=== PATIENT | male | born 1985 | race African-American/Black ===

== ENCOUNTER 2025-05-01 11:10 | Emergency (ER) | payer OTHER, SELFPAY ==
--- NOTE | ~2025-05-01 | XR_ITS ---
EXAMINATION: XR CHEST CLINICAL INFORMATION: cp COMPARISON: None available. TECHNIQUE: PA and lateral views. FINDINGS: No consolidation, pleural effusion or pneumothorax. Cardiomediastinal silhouette size is normal. Multilevel thoracic spondylosis. XR/XR chest 2V IMPRESSION: No acute airspace disease. Electronically signed by: Rao Barrow MD 05/01/2025 11:46 AM [facility]
--- NOTE | ~2025-05-01 | CT_ITS ---
CLINICAL HISTORY: right chest pain, hx PE Exam: Contrast-enhanced chest CT pulmonary angiogram with multiplanar reformats and MIP reconstructions. Comparison: None. Findings: There are small right lower lobe segmental and subsegmental pulmonary emboli (8; 221-249). No other pulmonary emboli appreciated. No definitive CT evidence of right ventricular strain. No aortic dissection. No pleural or pericardial effusions. No mediastinal or hilar masses or adenopathy. Images below the diaphragms reveal no acute abnormalities. A partially imaged left renal cyst is noted. Lungs are free of focal consolidation. Airways are patent. No pneumothorax. Impression: 1. Right lower lobe segmental and subsegmental pulmonary emboli. No CT evidence of right ventricular strain. 2. No other acute pulmonary disease. This document has been electronically signed by: Figueroa Kent MD on 05/01/2025 18:15:54
--- OUTSIDE RECORDS SUMMARY | 2025-05-01 10:00 | XMS_ITS | Encounter Summary ---
Author Organization [facility] Address [address] [place] [address] Care Team Providers Care Information Officer Name Role Phone Karen Scales PA-C Primary Care Provi naveed Stanislaw Rodriguez MD Unavailable Unavailable [facility] Unavailable [phone] Reason for Referral * Cardiovascular Test (Routine) - Pending Review Specialty Diagnoses / Procedures Referred By Contac t Referred To Contact Diagnoses Chest wall pain Chest pain, unspecified type Family history of cardiac disorder Procedures Echocardiogram (TTE) Comprehensive (Contrast PRN) Figueroa Mak PA-C [address] [place] [address] [place] [address] Phone: tel: fax: Referral ID Status Reason Start Date Expiration Date V isits Requested Visits Authorized [id number] Pending Review 05/01/2025 05/02/2026 1 1 * Cardiology (Routine) - Authorized Specialty Diagnoses / Procedures Referred By Contac t Referred To Contact Cardiovascular Disease Diagnoses Chest wall pain Chest pain, unspecified type Family history of cardiac disorder Figueroa Mak PA-C [address] [place] [address] [place] [address] Phone: tel: fax: Tavo Patel, DO [address] [place] [address] [address] [place] [address] Phone: tel: fax: Referral ID Status Reason Start Date Expiration Date Visits Requested Visits Authorized [id number] Authorized Specialty Services Required 05/02/2026 1 1 Question Answer Reason for referral: Non-emergent chest pain Reason for Visit * Reason Comments Back Pain Mid back pain that c omes and goes. No specific injury to area. Encounter Details Date Type Department Care Team (Late st Contact Info) Description 05/01/2025 10:00 AM EST Office Visit [facility] [address] [facility] [address] [place] [address] Figueroa Mak PA-C [address] [facility] [address] [place] [address] Chest wall pain (Primary Dx); Chest pain, unspecified type; Family history of cardiac disorder Social History Tobacco Use Types Packs/Day Years Used Date Smoking Tobacco: Never Smokeless Tobacco: Never Tobacco Cessation:Counseling Given: Not Answered Alcohol Use Standard Drinks/Week Comments Yes 0 (1 standard drink = 0.6 oz pur e alcohol) [facility] Utilities Answer Date Recorded In the past 12 months has [employer] electric, gas, oil, or water company threatened to shut off services in your home? No 07/02/2024 Social Connection and Isolation Panel Answer Date Recorded In a typical week, how many times do you talk on the phone with family, friends, or neighbors? More than three times a week 07/02/2024 Frequency of Social Gatherin gs with Friends and Family Not on file 07/02/2024 Attends Islam Services Not on file 07/02 Active Member of Clubs or Organizations Not on f ile 07/02/2024 Attends Club or Organization Meetings Not on annalee e 07/02/2024 Marital Status Not on file 07/02/2024 AUDIT-C Answer Date Recorded Q1: How often do you have a drink containing alc ohol? Monthly or less 07/02/2024 Q2: How many drinks containi ng alcohol do you have on a typical day when you are drinking? 1 or 2 07/02/2024 Frequency of Binge Drinking Not on file 06/14 PHQ-2 Answer Date Recorded PHQ-2 Total Score 0 01/12/2025 Hunger Vital Sign Answer Date Recorded Within the past 12 months, y ou worried that your food would run out before you got the money to buy more. Never true 07/02/19 25 Within the past 12 months, t he food you bought just didn't last and you didn't have money to get more. Never true 07/02/2024 PRAPARE - Transportation Answer Date Re corded In the past 12 months, has l ack of transportation kept you from medical appointments or from getting medications? No 06/14 In the past 12 months, has l ack of transportation kept you from meetings, work, or from getting things needed for daily living? No 07/02/2024 Housing Stability Vital Sign Answer Roby e Recorded In the last 12 months, was t here a time when you were not able to pay the mortgage or rent on time? No 07/02/2024 In the past 12 months, how m any times have you moved where you were living? 0 07/02/2024 At any time in the past 12 m [facility], were you homeless or living in a [place] facility (including now)? No 07/02/2024 Physical Activity Answer Date Recorded On average, how many days pe r week do you engage in moderate to strenuous exercise (like a brisk walk)? 4 days 01/12/2025 On average, how many minutes do you exercise per day at this level? 60 min 01/12/2025 Education Answer Date Recorded What is the highest level of school you have completed or the highest degree you have received? Some college, no degree 07/02/2024 Sex and Gender Information Value Date Recorded Sex Assigned at Male 09/18/2023 8:10 AM EDT Legal Sex Male 10:02 AM EST Gender Identity Not on file Sexual Orientation Not on file documented as of this encounter Last Filed Vital Signs Vital Sign Reading Time Taken Comments Blood Pressure 130/94 05/01/2025 9:50 AM EST Pulse 74 05/01/2025 9:50 AM EST Temperature 36.7 C (98.1 F) 05/01/2025 9:50 AM EST Respiratory Rate 17 05/01/2025 9:50 AM EST Oxygen Saturation 97% 05/01/2025 9:50 AM EST Inhaled Oxygen Concentration - - Weight 141 kg (311 lb 9.6 oz) 05/01/2025 9:50 AM EST Height 180.3 cm (5' 11 ) 05/01/2025 9:50 AM EST Body Mass Index 43.46 05/01/2025 9:50 AM EST documented in this encounter Plan of Treatment Upcoming Encounters Date Type Department Care Team (Late st Contact Info) Description 07/14/2025 12:30 PM EST Office Visit [facility] [address] [facility] [address] [place] [address] Karen Scales PA-C [address] [place] [address] Scheduled Orders Name Type Priority Associated Diagnoses Orde r Schedule Echocardiogram (TTE) Comprehensive (Contrast PRN) Echocardiography Routine Chest wall pain Chest pain, unspecified type Family history of cardiac disorder Ordered: 05/01/2025 Scheduled Referrals Name Type Priority Associated Diagnoses Orde r Schedule Amb Referral to Cardiology Outpatient Referral Routine Chest wall pain Chest pain, unspecified type Family history of cardiac disorder Ordered: 05/01/2025 documented as of this encounter Visit Diagnoses Diagnosis Chest wall pain- Primary Painful respiration Chest pain, unspecified type Family history of cardiac disorder documented in this encounter Care Teams Information Officer Relationship Specialty Start Date End Date Karen Scales PA-C [address] [place] [address] PCP - General Internal Medicine 09/05/23 Stanislaw Rodriguez MD 100 [place] [address] Gastroenterology 09/06/23 Shiv Cedeño MD [address] [address] Neuropsychiatry 09/06/23 documented as of this encounter
--- NOTE | 2025-05-01 11:13 | ECG_ITS ---
Test Reason : cp Blood Pressure : */* mmHG Vent. Rate : 65 BPM Atrial Rate : 65 BPM P-R Int : 160 ms QRS Dur : 100 ms QT Int : 416 ms P-R-T Axes : 53 21 -24 degrees QTcB Int : 432 ms Normal sinus rhythm T wave abnormality, consider inferior ischemia T wave abnormality, consider anterolateral ischemia Abnormal ECG No previous ECGs available Referred By: Citlalli Huff Electronically Signed By: Philipp Han
--- NOTE | 2025-05-01 11:33 | ED_ITS ---
HPI - Chest Pain General Chief Complaint: Chest Pain Stated Complaint: CP, back pain Time Seen by Provider: 05/01/25 16:09 Source: patient, RN notes reviewed and old records reviewed Mode of arrival: ambulatory Limitations: no limitations History of Present Illness ED Provider: Kathi HOLLINGSWORTH narrative: 40-year-old male presents for evaluation of right-sided chest pain pain The pain radiates to his back in his worse with inspiration pain His pain started about a week and a half ago. He can not think of any inciting incident. His pain has been somewhat waxing and waning in intensity. He denies any significant shortness of breath despite the pain being worse with inspiration The patient does have a history of PE about a year and a half ago. He was anticoagulated for a little over 6 months. the patient reports despite workups it was not determined what the cause of his PE was he denies any recent travel, recent surgeries, history of cancer Related Data Previous Rx's ?Medication ?Instructions ?Recorded apixaban 5 mg (74 tabs) tablets in 5 mg PO BID #74 ea 05/01/25 a dose pack (Eliquis DVT-PE Treat 30D Start) Allergies Allergy/AdvReac Type Severity Reaction Status Date / Time No Known Allergies Allergy Verified 05/01/25 11:37 Review of Systems 2 Constitutional: Constitutional: Denies body ache(s), Denies chills, Denies fever(s) and Denies headache(s) Eyes: Eyes: Denies blurry vision ENT: Denies vertigo, Denies dizziness and Denies headache(s) Cardiovascular: Cardiovascular: Reports chest pain, Denies dyspnea and Denies dyspnea on exertion Respiratory: Respiratory: Denies chest congestion, Denies cough, Reports pain on inspiration, Denies dyspnea and Denies dyspnea on exertion Gastrointestinal: Gastrointestinal: Denies abdominal pain, Denies nausea and Denies vomiting Musculoskeletal: Musculoskeletal: Denies back pain Neurologic: Denies vertigo, Denies dizziness and Denies headache(s) [facility] Social History Social History Smoked in Last 30 Days: No Use of substances other than those prescribed or required for medical reasons: No Advance Directives: No Advance Directives Information Provided: No Do you have a plan to hurt others: No Plan Physical Exam 2 Vital Signs: Vital Signs: Last Vital Signs Temp 97.8 F 05/01/25 11:34 Pulse 52 05/01/25 17:11 Resp 16 05/01/25 17:11 BP 136/72 05/01/25 17:11 Pulse Ox 98 05/01/25 11:34 O2 Del Method Room Air 05/01/25 11:34 BMI result Body Mass Index 42.6 Const: General: healthy appearing, comfortable, no acute distress, alert and awake Nutritional Appearance: well nourished Orientation/consciousness: p atient oriented x3 HEENT: Head: Yes normocephalic and Yes atraumatic Eyes: Eyelids: Yes eyelids normal Conjunctivae: conjunctivae normal S clerae: sclerae normal Corneas: corneas normal Pupils: Equal, round and reactive pupils present EOM: EOMs intact bilaterally Neck: Neck: Yes full ROM Chest: Chest palpation & inspection: normal inspection of the chest and no crepitus Resp: Effort & Inspection: normal respiratory effort, able to speak in complete sentences, no audible wheezes and not labored Auscultation: clear to auscultation bilaterally Cardio: Rate: regular rate Rhythm: regular rhythm GI: Inspection: No distended Palpation (GI): Soft to palpation, not firm, nontender, no guarding and not rigid Skin: General skin exam: elasticity normal Neuro: General: patient oriented x3 Cranial nerves: Yes Equal, round and reactive pupils present and Yes Bilaterally intact EOM present Cognition (Neuro): normal cognition Course Course Course Narrative: This is a Rapid Medical Exam performed in triage by Citlalli Huff PA-C. Full HPI, ROS and PE to be performed by primary ED provider. 40 yo M w/PMHx PE (no longer on AC) presenting to the ED c/o chest pain and back pain x 1.5 weeks. Admits pain worse with deep breathing. Denies SOB. denies smoking/travel PE: NAD, nontoxic appearing, ambulating with steady gait Plan: EKG, labs, CXR Reevaluation(s) Reevaluation #1: the patient's CT scan unfortunately did reveal a right-sided segmental and subsegmental pulmonary embolism. There was no evidence of heart strain on imaging. His troponin is negative x2. He has not been tachycardic, tachypneic, hypoxic or hypotensive. I did recommend lower extremity ultrasounds to evaluate for DVT given this pulmonary embolism diagnosis. the patient reports that he has good follow up with his primary doctor and believes he can get this done as an outpatient. He understands the risks and benefits of anticoagulation as he has been on these in the past. I do not see any benefit to admitting the patient overnight tonight. We will start him on Eliquis which she has been on previously. I will refer him to Hematology/Oncology due to his 2nd pulmonary embolism without obvious provocation. He has a PESI score of 52 in his exceedingly low risk for severe adverseoutcome Time: 18:39 Medications Administered Discontinued Medications Generic Name Dose Route Start Last Admin Trade Name Albin PRN Reason Stop Dose Admin Iohexol 100 ml 05/01/25 17:46 05/01/25 17:46 Iohexol 350 Mg/Ml 100 Ml Infus..Btl IV 05/01/25 17:47 65 ml ONCE ONE Administration Medical Decision Making Medical Decision Making [facility] Narrative: 40-year-old male presents for evaluation of right-sided chest pain worse with deep inspiration. Has a history of pulmonary embolism in his not currently anticoagulated. His workup thus far is unremarkable, EKG does have some T-wave inversions, no ST changes. His pain has been present for a week and a half.. Chest x-ray does not show any obvious abnormalities. The labs are reassuring, initial troponin was within normal limits. The patient is not hypoxic, tachycardic or tachypneic. Though he is a slightly higher risk of PE given his history of PE and he is not anticoagulated. I discussed possible discharge with close follow up versus obtaining a CT angiography to definitively rule out PE. The patient in his elected to perform the CT angiography. I feel this is appropriate given his history Differential Diagnosis Differential Diagnoses: The differential diagnosis associated with the presentation includes pulmonary embolism Muscle strain Contusion Bronchitis Pneumonia Chest wall strain Lab Data [facility] Lab Attestation statement: I reviewed the patient's lab results. as above 05/01/25 11:31 05/01/25 11:31 Labs: Lab Results 05/01/25 05/01/25 05/01/25 Range/Units 11:31 11:58 16:53 WBC 5.6 (4.8-10.8) X10*3/uL RBC 5.33 (4.60-5.80) X10*6/uL Hgb 14.2 (14.0-18.0) g/dl Hct 44.9 (42.0-52.0) % MCV 84.2 (80.0-98.0) fL MCH 26.6 L (27.0-33.0) pg MCHC 31.6 (31.0-36.0) g/dl RDW 13.8 (11.0-16.0) % Plt Count 214 (160-400) X10*3/uL MPV 10.9 (9.4-12.4) fL Immature Gran % (Auto) 0.2 (0.0-0.4) % Neut % (Auto) 63.5 (45-73) % Lymph % (Auto) 29.9 (20-40) % Ellis % (Auto) 5.3 (2-11) % Eos % (Auto) 0.7 (0-4) % Baso % (Auto) 0.4 (0-2) % Lymph # (Auto) 1.7 (1.2-4.9) X10*3/uL Ellis # (Auto) 0.3 (0.1-1.2) X10*3/uL Eos # (Auto) 0.0 (0.0-0.4) X10*3/uL Baso # (Auto) 0.0 (0.0-0.2) X10*3/uL Abs Immat Gran (auto) 0.01 (0.00-0.03) X10*3/uL Absolute Neuts (auto) 3.6 (2.0-8.3) x10*3/uL Absolute Nucleated RBC 0.000 (0.0-0.012) X10*3/uL Nucleated RBC % (auto) 0.0 (0.0-0.2) /100WBC PT 11.8 (11.2-13.5) SEC INR 1.0 (0.9-1.1) Sodium 141 (135-145) mmol/L Potassium 3.7 (3.3-5.1) mmol/L Chloride 107 (96-108) mmol/L Carbon Dioxide 25 (22-29) mmol/L Anion Gap 13 (12-20) BUN 24 H (9-16) mg/dL Creatinine 0.86 (0.5-1.4) mg/dL Estim Creat Clear Calc 159.1 Estimated GFR > 60 Random Glucose 91 (60-115) mg/dL Calcium 9.4 (8.4-10.2) mg/dL Magnesium 1.9 (1.6-2.6) mg/dL Total Bilirubin 0.5 (0.0-1.0) mg/dL Direct Bilirubin 0.2 (0.0-0.5) mg/dL AST 24 (5-37) U/L ALT 24 (0-40) U/L Alkaline Phosphatase 67 (39-117) U/L Troponin I High Sens 4.1 3.9 (<3.5-35.0) ng/L Total Protein 7.4 (6.5-8.0) g/dL Albumin 4.7 (3.5-5.0) g/dL Independent Interpretation I performed an independent interpretation of an: EKG ( normal sinus rhythm with a rate of [address] segment elevation NC.) and Plain X-Ray Interpretation: no infiltrates Radiology Impression Discussion of test interpretation with radiology: I have reviewed the radiologist's reading. Radiologist Impression: CLINICAL INFORMATION: cp COMPARISON: None available. TECHNIQUE: PA and lateral views. FINDINGS: No consolidation, pleural effusion or pneumothorax. Cardiomediastinal silhouette size is normal. Multilevel thoracic spondylosis. XR/XR chest 2V IMPRESSION: No acute airspace disease. Electronically signed by: Rao Barrow MD 05/01/2025 11:46 AM EST Discharge Plan Discharge Clinical Impression: Pulmonary embolism Patient Disposition: Home, Self-Care Instructions: Pulmonary Embolism (ED), Blood Thinners (ED) Additional Instructions: you were found to have what is called a segmental and subsegmental pulmonary embolism. In his important that you take Eliquis twice daily as prescribed. Follow up with your primary doctor as you would benefit from repeat ultrasounds of your legs to rule out DVT. Additionally you should follow up with Hematology/Oncology for further workup of clotting studies return for new or worsening symptoms Prescriptions: New Eliquis DVT-PE Treat 30D Start 5 mg (74 tabs) tablets,dose pack 5 mg PO BID Qty: 74 0RF [place] [facility] [place]ematology [place] Group] Referral Note: 2nd PE in 1.5 years. no clear provocation Print Language: Yoruba
[2025-05-01 11:34] VITALS: BP 150/85; PULSE 56; RESP 18; TEMP 36.6; O2SAT 98; BMI 42.6
[2025-05-01 11:37] LABS: MANUAL DIFF FLAG NO
[2025-05-01 11:38] LABS: Hematocrit 44.9 % (42.0-52.0); Hemoglobin 14.2 g/dl (14.0-18.0); Imm Gran Abs Auto 0.01 X10*3/uL (0.00-0.03); Imm Gran Pct Auto 0.2 % (0.0-0.4); Lymphocytes Absolute Auto 1.7 X10*3/uL (1.2-4.9); Mean Corpuscular HGB Conc 31.6 g/dl (31.0-36.0); Mean Corpuscular Hemoglobin 26.6 pg (27.0-33.0); Mean Corpuscular Volume 84.2 fL (80.0-98.0); NRBC Abs Auto 0.000 X10*3/uL (0.0-0.012); NRBC Pct Auto 0.0 /100WBC (0.0-0.2); Platelet Count 214 X10*3/uL (160-400); Red Blood Count 5.33 X10*6/uL (4.60-5.80); White Blood Count 5.6 X10*3/uL (4.8-10.8)
[2025-05-01 11:58] LABS: Alanine Aminotransferase 24 U/L (0-40); Albumin Level 4.7 g/dL (3.5-5.0); Alkaline Phosphatase 67 U/L (39-117); Anion Gap 13 (12-20); Aspartate Amino Transferase 24 U/L (5-37); Blood Urea Nitrogen 24 mg/dL (9-16); Calcium 9.4 mg/dL (8.4-10.2); Carbon Dioxide 25 mmol/L (22-29); Chloride 107 mmol/L (96-108); Creatinine Clr Calc Pharmacy 159.1; Estimated Glomerular Filt Rate > 60; Magnesium 1.9 mg/dL (1.6-2.6); Potassium 3.7 mmol/L (3.3-5.1); Sodium 141 mmol/L (135-145); Total Protein 7.4 g/dL (6.5-8.0); Troponin-I High Sensitivity 4.1 ng/L (<3.5-35.0)
[2025-05-01 12:10] LABS: INTERNATIONAL NORM RATIO 1.0 (0.9-1.1); Prothrombin Time 11.8 SEC (11.2-13.5)
--- OUTSIDE RECORDS SUMMARY | 2025-05-01 16:45 | XMS_ITS | Encounter Summary ---
Author Organization [facility] Address [address] [place], [place] [id number] Care Team Providers Care Yarn Sizer Name Role Phone Karen Scales PA-C Primary Care Provi naveed Stanislaw Rodriguez MD Unavailable Unavailable Shiv Cedeño MD Unavailable [phone] Encounter Details Date Type Department Care Team (Late st Contact Info) Description 11/21/2023 Scanned Document [address] [id number] Emergency Medicine, Scan Social History Tobacco Use Types Packs/Day Years Used Date Smoking Tobacco: Never Smokeless Tobacco: Never Alcohol Use Standard Drinks/Week Comments Yes 0 (1 standard drink = 0.6 oz pur e alcohol) PHQ-2 Answer Date Recorded PHQ-2 Total Score 0 09/18/2023 Sex and Gender Information Value Date Recorded Sex Assigned at Male 09/18/2023 8:10 AM EDT Legal Sex Male 10:02 AM EST Gender Identity Not on file Sexual Orientation Not on file documented as of this encounter Plan of Treatment Upcoming Encounters Date Type Department Care Team (Late st Contact Info) Description 07/14/2025 12:30 PM EST Office Visit [address] [phone] Karen Scales PA-C [address] [place] [address] documented as of this encounter Visit Diagnoses Not on filedocumented in this encounter Care Teams Yarn Sizer Relationship Specialty Start Date End Date Karen Scales PA-C [address] [place] [address] PCP - General Internal Medicine 09/05/23 Stanislaw Rodriguez MD [address] [place] [address] Gastroenterology 09/06/23 Shiv Cedeño MD [address] [address] Neuropsychiatry 09/06/23 documented as of this encounter
--- OUTSIDE RECORDS SUMMARY | 2025-05-01 16:45 | XMS_ITS ---
Author Name [facility] Organization Unknown Results Test Name/Text Value Interpretation Date Range Source Monocytes NFr Bld Auto 6.1 % Normal 08/20/2024 [facility] Lymphocytes NFr Bld Auto 32.0 % Normal 08/20/2024 [facility] Lymphocytes # Bld Auto 1632.0 cells/uL Normal 08/20/2024 850 - 3900 [facility] RBC Auto 85.9 fL Normal 08/20/2024 80 - 100 [facility] Neutrophils NFr Bld Auto 59.9 % Normal 08/20/2024 [facility] MCH RBC Qn Auto 27.2 pg Normal 08/20/2024 27 - [address] RDW RBC Auto 13.9 % Normal 08/20/2024 11 - 15 [facility] Platelet # Bld Auto 224.0 Thousand/uL Normal 08/20/2024 140 - 400 [facility] Monocytes # Bld Auto 311.0 cells/uL Normal 08/20/2024 200 - 950 [facility] Hgb Bld-mCnc 13.3 g/dL Normal 08/20/2024 13.2 - 17.1 [facility] T Hct VFr Bld Auto 42.0 % Normal 08/20/2024 38.5 - 50 QU EST MCHC RBC Auto-EntMCnc 31.7 g/dL Below low normal 08/20/2024 32 - 36 [facility] PMV Bld Negro-Danish 11.7 fL Normal 08/20/2024 7.5 - 12.5 [facility] Neutrophils # Bld Auto 3055.0 cells/uL Normal 08/20/2024 1500 - 7800 [facility] WBC # Bld Auto 5.1 Thousand/uL Normal 08/20/2024 3.8 - 10 .8 [facility] Eosinophil # Bld Auto 61.0 cells/uL Normal 08/20/2024 15 - 500 [facility] Basophils NFr Bld Auto 0.8 % Normal 08/20/2024 [facility] Eosinophil NFr Bld Auto 1.2 % Normal 08/20/2024 [facility] RBC # Bld Auto 4.89 Million/uL Normal 08/20/2024 4.2 - 5. 8 [facility] Basophils # Bld Auto 41.0 cells/uL Normal 08/20/2024 0 - 200 [facility] Ferritin SerPl-mCnc 120.0 ng/mL Normal 08/20/2024 38 - 38 0 [facility] TIBC SerPl-mCnc 265.0 mcg/dL (calc) Normal 08/20/2024 250 - 425 [facility] Iron SerPl-mCnc 68.0 mcg/dL Normal 08/20/2024 50 - 180 [facility] Iron Satn MFr SerPl 26.0 % (calc) Normal 08/20/2024 20 - 48 [facility] Platelet # Bld Auto 240.0 Thousand/uL Normal 06/27/2024 140 - 400 [facility] Basophils # Bld Auto 42.0 cells/uL Normal 06/27/2024 0 - 200 [facility] Lymphocytes/leuk NFr Bld Auto 39.0 % Normal 06/27/2024 [facility] PMV Bld Negro-Danish 11.3 fL Normal 06/27/2024 7.5 - 12.5 [facility] Neutrophils # Bld Auto 3138.0 cells/uL Normal 06/27/2024 1500 - 7800 [facility] Eosinophil # Bld Auto 78.0 cells/uL Normal 06/27/2024 15 - 500 [facility] WBC # Bld Auto 6.0 Thousand/uL Normal 06/27/2024 3.8 - 10 .8 [facility] RDW RBC Auto-Rto 14.1 % Normal 06/27/2024 11 - 15 QU EST [facility]CHC RBC Auto-mCnc 31.5 g/dL Below low normal 06/27/2024 32 - 36 [facility] Basophils/leuk NFr Bld Auto 0.7 % Normal 06/27/2024 [facility] Monocytes/leuk NFr Bld Auto 6.7 % Normal 06/27/2024 [facility] Neutrophils/leuk NFr Bld Auto 52.3 % Normal 06/27/2024 [facility] Eosinophil/leuk NFr Bld Auto 1.3 % Normal 06/27/2024 [facility] Monocytes # Bld Auto 402.0 cells/uL Normal 06/27/2024 200 - 950 [facility] MCH RBC Qn Auto 26.8 pg Below low normal 06/27/2024 27 - 3 3 [facility] Hgb Bld-mCnc 13.1 g/dL Below low normal 06/27/2024 13.2 - 17 .1 [facility] RBC # Bld Auto 4.88 Million/uL Normal 06/27/2024 4.2 - 5. 8 [facility] MCV RBC Auto 85.2 fL Normal 06/27/2024 80 - 100 [facility] Lymphocytes # Bld Auto 2340.0 cells/uL Normal 06/27/2024 850 - 3900 [facility] Hct VFr Bld Auto 41.6 % Normal 06/27/2024 38.5 - 50 QU EST Bacteria #/area UrnS HPF NONE SEEN Normal 06/27/2024 - [facility] Nitrite Ur Ql Strip NEGATIVE Normal 06/27/2024 - [facility] Prot Ur Ql Strip TRACE Abnormal 06/27/2024 - QU EST Color Ur YELLOW Normal 06/27/2024 - [facility] Service Cmnt-Imp Normal 06/27/2024 QU EST WBC #/area UrnS HPF NONE SEEN Normal 06/27/2024 - [facility] Sp Gr Ur Strip 1.027 Normal 06/27/2024 1.001 - 1.035 [facility] RBC #/area UrnS HPF NONE SEEN Normal 06/27/2024 - [facility] Squamous #/area UrnS HPF NONE SEEN Normal 06/27/2024 - [facility] Bilirub Ur Ql Strip NEGATIVE Normal 06/27/2024 - [facility] Hyaline Casts #/area UrnS LPF NONE SEEN Normal 06/27/2024 - [facility] Leukocyte esterase Ur Ql Strip NEGATIVE Normal 06/27/2024 - [facility] pH Ur Strip 6.0 Normal 06/27/2024 5 - 8 [facility] Glucose Ur Ql Strip NEGATIVE Normal 06/27/2024 - [facility] Ketones Ur Ql Strip NEGATIVE Normal 06/27/2024 - [facility] Hgb Ur Ql Strip NEGATIVE Normal 06/27/2024 - [facility] Appearance Ur CLEAR Normal 06/27/2024 - [facility] Testost Free SerPl-mCnc 49.1 pg/mL Normal 06/27/2024 35 - 155 [facility] Testost SerPl-mCnc 237.0 ng/dL Below low normal 06/27/2024 2 50 - 1100 [facility] Creat SerPl-mCnc 0.94 mg/dL Normal 06/27/2024 0.6 - 1.29 [facility] Globulin Ser Calc-mCnc 2.4 g/dL (calc) Normal 06/27/2024 1.9 - 3.7 [facility] Bilirub SerPl-mCnc 0.3 mg/dL Normal 06/27/2024 0.2 - 1.2 [facility] eGFRcr SerPlBld CKD-EPI 2020 104.0 mL/min/1.73m2 Normal 06/27/2024 - [facility] ALT SerPl-cCnc 29.0 U/L Normal 06/27/2024 9 - 46 [facility] T Calcium SerPl-mCnc 9.3 mg/dL Normal 06/27/2024 8.6 - 10.3 [facility] Potassium SerPl-sCnc 3.9 mmol/L Normal 06/27/2024 3.5 - 5 .3 [facility] Prot SerPl-mCnc 6.8 g/dL Normal 06/27/2024 6.1 - 8.[address] BUN SerPl-mCnc 22.0 mg/dL Normal 06/27/2024 7 - [address] Sodium SerPl-sCnc 141.0 mmol/L Normal 06/27/2024 135 - 14 6 [facility] Chloride SerPl-sCnc 106.0 mmol/L Normal 06/27/2024 98 - 1 10 [facility] CO2 SerPl-sCnc 26.0 mmol/L Normal 06/27/2024 20 - 32 [facility] Glucose SerPl-mCnc 86.0 mg/dL Normal 06/27/2024 65 - 99 [facility] Albumin/Glob SerPl 1.8 (calc) Normal 06/27/2024 1 - 2.5 [facility] ALP SerPl-cCnc 71.0 U/L Normal 06/27/2024 36 - 130 [facility] T AST SerPl-cCnc 23.0 U/L Normal 06/27/2024 10 - 40 [facility] T BUN/Creat SerPl SEE NOTE: Normal 06/27/2024 6 - [address] Albumin SerPl-mCnc 4.4 g/dL Normal 06/27/2024 3.6 - 5.1 [facility] Trigl SerPl-mCnc 248.0 mg/dL Above high normal 06/27/2024 - 150 [facility] HDLc SerPl-mCnc 36.0 mg/dL Below low normal 06/27/2024 - [facility] LDLc SerPl Calc-mCnc 150.0 mg/dL (calc) Above high normal 06/27/2024 [facility] Cholest SerPl-mCnc 227.0 mg/dL Above high normal 06/27/2024 - 200 [facility] NonHDLc SerPl-mCnc 191.0 mg/dL (calc) Above high normal 06/27/2024 - 130 [facility] Cholest/HDLc SerPl 6.3 (calc) Above high normal 06/27/2024 - 5 [facility] Iron SerPl-mCnc 48.0 mcg/dL Below low normal 06/27/2024 50 - 180 [facility] Iron Satn MFr SerPl 17.0 % (calc) Below low normal 20 - 48 [facility] TIBC SerPl-mCnc 282.0 mcg/dL (calc) Normal 06/27/2024 250 - 425 [facility] Ferritin SerPl-mCnc 157.0 ng/mL Normal 06/27/2024 38 - 38 0 [facility] TSH SerPl-aCnc 1.98 mIU/L Normal 06/27/2024 0.4 - 4.[address] [facility] HbA1c MFr Bld 5.7 % of total Hgb Above high normal 06/27/2024 - 5.7 [facility] History of Medication Use Medication Directions Dispensed Refills Start Date End Date Stat amLODIPine (NORVASC) 10 MG tablet Take 1 tablet (10 mg total) by mouth daily. 09/05/2023 active hydroCHLOROthiazide (HYDRODIURIL) 25 MG tablet Take 1 tablet (25 mg total) by mouth daily. 09/05/2023 active cholecalciferol (CHOLECALCIFEROL) 25 MCG (1000 UT) tablet Take 1 tablet (1,000 Units total) by mouth daily. active multivitamin Tab tablet Take 1 tablet by mouth daily. active zinc gluconate 50 MG tablet Take 1 tablet (50 mg total) by mouth daily. active Problems Problem Status Onset Date Problem Type Date of Resoluti on Source Obesity (BMI 30.0-34.9) active 2023-09-06 [facility] History of kidney stones active 2023-09-06 ProblemAct [facility] LIBRADO (obstructive sleep apnea) active 2023-09-06 ProblemAct [facility] Family history of colon cancer active 2023-09-06 ProblemAct [facility] Other hyperlipidemia active 2023-09-06 ProblemAct [facility] Primary hypertension active 2023-09-06 ProblemAct [facility] Immunizations Vaccine Date Source Lot Number Status Tdap 05/31/2018 [facility] completed Encounters Encounter Type Encounter Reason Primary Diagnosis Location Date Ambulatory Back Pain Back Pain [facility] 05/01/2025 Ambulatory Encounter for genera l adult medical examination without abnormal findings Encounter for general adult medical examination without abnormal findings [facility] 01/13/2025 Ambulatory Other hyperlipidemia Other hyperlipidemia [facility] 09/01/2024 Ambulatory Iron deficiency anemia, unspecified Iron deficiency anemia, unspecified [facility] 07/02/2024 Ambulatory Essential (primary) hypertension Essential (primary) hypertension [facility] 06/04/2024 Ambulatory Family history of malignant neoplasm of digestive organs Family history of malignant neoplasm of digestive organs [facility] 11/29/2023 Ambulatory Other pulmonary embolism without acute cor pulmonale Other pulmonary embolism without acute cor pulmonale [facility] 11/20/2023 Ambulatory Pain in left hip [facility] in [facility] Ambulatory Obstructive sleep apnea (adult) (pediatric) Obstructive sleep apnea (adult) (pediatric) [employer] [employer] 09/18/2023 Care Team Organization Name Specialty Phone Email Start Date End Da te [facility] JONG POWELL Primary Care 05/01/2025 [facility] SHERRY Primary Care 09/18/2023 [facility] ALCIRA POWELL Primary Care 09/06/2023 [facility] NO PCP Primary Care 06/11/2023 06/11/2023
--- OUTSIDE RECORDS SUMMARY | 2025-05-01 16:45 | XMS_ITS | Encounter Summary ---
Author Organization [facility] Address [address] [place] [id number] Care Team Providers Care Wet Milling Wheel Operator Name Role Phone Karen Scales Primary Care Provider [phone] Encounter Details Date Type Department Care Team (Late st Contact Info) Description 08/19/2024 Lab Requisition [facility] - Main Lab [address] [place] [address] River Godoy PA [address] [place] [phone] Testicular hypofunction Social History Tobacco Use Types Packs/Day Years Used Date Smoking Tobacco: Never Smokeless Tobacco: Never Alcohol Use Standard Drinks/Week Comments Yes 0 (1 standard drink = 0.6 oz pur e alcohol) Sex and Gender Information Value Date Recorded Sex Assigned at Not on file Legal Sex Male 7:22 PM EST Gender Identity Not on file Sexual Orientation Not on file documented as of this encounter Plan of Treatment Not on file documented as of this encounter Procedures Procedure Name Priority Date/Time Associated Diagnosis Comments PROLACTIN Routine 08/19/2024 8:08 AM EDT Testicular hypofunction COMPLETE BLOOD COUNT Routine 08/19/2024 8:08 AM EDT Testicular hypofunction LUTEINIZING HORMONE Routine 08/19/2024 8 :08 AM EDT Testicular hypofunction FOLLICLE STIMULATING HORMONE Routine 08/19/2024 8:08 AM EDT Testicular hypofunction HEPATIC FUNCTION PANEL Routine 08/19/2024 8:08 AM EDT Testicular hypofunction documented in this encounter Results * Luteinizing hormone (08/19/2024 8:08 AM EDT) Luteinizing Hormone 2.0 1.2 - 10.6 mIU/mL LAB CHEMISTRY METHOD 08/19/2024 12:50 PM EDT [facility] Blood Venous blood specimen / Unknown 08/19/2024 8:08 AM EDT 08/19/2024 12:10 PM EDT [facility] BLOOD ORDERABLES Final Res ult [facility] [address] [place] [address], [place] [phone] * Follicle stimulating hormone (08/19/2024 8:08 AM EDT) Follicle Stimulating Hormone 2.2 0.7 - 10.8 mIU/mL LAB CHEMISTRY METHOD 08/19/2024 1:45 PM EDT [facility] Blood Venous blood specimen / Unknown 08/19/2024 8:08 AM EDT 08/19/2024 12:10 PM EDT [facility] BLOOD ORDERABLES Final Res ult [facility] [address] [place] [address], [place] [phone] * Prolactin (08/19/2024 8:08 AM EDT) Prolactin 12.30 2.50 - 17.40 ng/mL LAB CHEMISTRY METHOD 08/19/2024 12:50 PM EDT [facility] Blood Venous blood specimen / Unknown 08/19/2024 8:08 AM EDT 08/19/2024 12:10 PM EDT [facility] BLOOD ORDERABLES Final Res ult [facility] [address] [place] [address], [place] [phone] * Hepatic function panel (08/19/2024 8:08 AM EDT) Total Protein 6.9 6.0 - 8.0 g/dL LAB CHEMISTRY METHOD 08/19/2024 12:48 PM EDT [facility] Albumin 3.8 3.2 - 5.0 g/dL LAB CHEMISTRY METHOD 08/19/2024 12:48 PM EDT [facility] Total Bilirubin 0.7 0.0 - 1.4 mg/dL LAB CHEMISTRY METHOD 08/19/2024 12:48 PM [facility] Bilirubin, Direct 0.2 0.0 - 0.3 mg/dL LAB CHEMISTRY METHOD 08/19/2024 12:48 PM EDT [facility] Bilirubin, Indirect 0.5 0.0 - 1.1 mg/dL LAB CHEMISTRY METHOD 08/19/2024 12:48 PM [facility] ALT (SGPT) 32 10 - 60 unit/L LAB CHEMISTRY METHOD 08/19/2024 12:48 PM [facility] AST (SGOT) 26 10 - 42 unit/L LAB CHEMISTRY METHOD 08/19/2024 12:48 PM T [facility] Alkaline Phosphatase 69 42 - 121 unit/L LAB CHEMISTRY METHOD 08/19/2024 12:48 PM T [facility] Blood Venous blood specimen / Unknown 08/19/2024 8:08 AM EDT 08/19/2024 12:10 PM EDT [facility] BLOOD ORDERABLES Final Res ult [facility] [address] [place] [address], * (ABNORMAL) Complete blood count (08/19/2024 8:08 AM EDT) [facility] WBC 5.4 4.8 - 10.8 K/mcL LAB [facility]EM[facility] RBC 4.90 4.50 - 5.50 M/mcL LAB HEMETOLOGY METHOD [facility]19[facility]24 [facility] Hemoglobin 13.2(L) 13.5 - 17.5 g/dL LAB HEMETOLOGY METHOD 08/19/2024 12:17 PM [facility] Hematocrit 42.5 42.0 - 54.0 % LAB HEMETOLOGY METHOD 08/19/2024 12:17 PM [facility] MCV 86.4 79.0 - 98.0 FL LAB HEMETOLOGY METHOD 08/19/2024 12:17 PM [facility] MCH 26.8(L) 27.0 - 32.0 pcg LAB HEMETOLOGY METHOD 08/19/2024 12:17 PM [facility] MCHC 31.1(L) 32.0 - 37.0 g/dL LAB HEMETOLOGY METHOD 08/19/2024 12:17 PM [facility] RDW 14.4 11.0 - 15.0 % LAB HEMETOLOGY METHOD 08/19/2024 12:17 PM [facility] Platelets 216 130 - 400 K/mcL LAB HEMETOLOGY METHOD 08/19/2024 12:17 PM [facility] MPV 11.5(H) 7.0 - 11.0 FL LAB HEMETOLOGY METHOD 08/19/2024 12:17 PM [facility] NRBC 0.0 <1.0 % LAB HEMETOLOGY METHOD 08/19/2024 12:17 PM EDT [facility] NRBC Absolute 0.00 <0.10 K/mcL LAB HEMETOLOGY METHOD 08/19/2024 12:17 PM EDT [facility] Blood Venous blood specimen / Unknown 08/19/2024 8:08 AM EDT 08/19/2024 12:10 PM EDT [facility] BLOOD ORDERABLES Final Res ult [facility] [address] [place] [address], documented in this encounter Visit Diagnoses Diagnosis Testicular hypofunction Other testicular hypofunction documented in this encounter Care Teams Wet Milling Wheel Operator Relationship Specialty Start Date End Date Karen Scales PA [address] [employer] [address] PCP - General 04/02/23 documented as of this encounter
--- OUTSIDE RECORDS SUMMARY | 2025-05-01 16:45 | XMS_ITS | Encounter Summary ---
Author Organization [facility] Address [address] [place] [address] Care Team Providers Care Business Administration Program Chair Name Role Phone Karen Scales PA-C Primary Care Provi naveed Stanislaw Rodriguez MD Unavailable Unavailable Shiv Cedeño MD Unavailable [phone] Encounter Details Date Type Department Care Team (Late st Contact Info) Description 01/23/2025 Scanned Document [facility] UROLOGY SCAN Urology, Scan Social History Tobacco Use Types Packs/Day Years Used Date Smoking Tobacco: Never Smokeless Tobacco: Never Alcohol Use Standard Drinks/Week Comments Yes 0 (1 standard drink = 0.6 oz pur e alcohol) [facility] Utilities Answer Date Recorded In the past 12 months has [employer] electric, gas, oil, or water company threatened to shut off services in your home? No 07/02/2024 Social Connection and Isolation Panel Answer Date Recorded In a typical week, how many times do you talk on the phone with family, friends, or neighbors? More than three times a week 07/02/2024 Frequency of Social Gatherin gs with Friends and Family Not on file 07/02/2024 Attends Tenriism Services Not on file 07/02 Active Member [...] any time in the past 12 m [facility], were you homeless or living in a m[facility] (including now)? No 07/02/2024 Physical Activity Answer [...] Description 07/14/2025 12:30 PM EST Office Visit [address] [place] [address] Karen Scales PA-C [address] [place] [id number] documented as of this encounter Visit Diagnoses Not on filedocumented in this encounter Care Teams Business Administration Program Chair Relationship Specialty Start Date End Date Karen Scales PA-C [address] [place] [address] PCP - General Internal Medicine 09/05/23 Stanislaw Rodriguez MD [address] [place] [address] Gastroenterology 09/06/23 Shiv Cedeño MD [address] [address] Neuropsychiatry 09/06/23 documented as of this encounter
--- OUTSIDE RECORDS SUMMARY | 2025-05-01 16:45 | XMS_ITS | Clinical Summary ---
Author Organization [facility] Address [address] [place] [address] Care Team Providers Care Dye And Chemical Coordinator Name Role Phone Karen Scales PA-C Primary Care Provi naveed Stanislaw Rodriguez MD Unavailable Unavailable WalShiv chavira MD Unavailable [phone] Allergies No known active allergies Medications multivitamin Tab tablet Take 1 tablet by mouth daily. Active zinc gluconate 50 MG tablet Take 1 tablet (50 mg total) by mouth daily. Active cholecalciferol (CHOLECALCIFEROL) 25 MCG (1000 UT) tablet Take 1 tablet (1,000 Units total) by mouth daily. Active hydroCHLOROthiazi de (HYDRODIURIL) 25 MG tabletIndications :Primary hypertension TAKE 1 TABLET(25 MG) BY MOUTH DAILY 90 tablet 3 06/10/2024 Active lisinopril (PRINIVIL,ZeSTRIL ) 20 MG tabletIndications :Primary hypertension Take 1 tablet (20 mg total) by mouth daily. 90 tablet 3 07/02/2024 06/27/19 26 Active Testosterone 1.62 % Gel 03/20/2025 Active Active Problems Problem Noted Date Diagnosed Date IFG (impaired fasting glucose) 01/13/2025 Assessment & Plan (01/13/2025 4:16 PM EDT): Last A1c 5.7. Will continue to follow. Orders: Hemoglobin A1c Iron deficiency anemia 01/13/2025 Assessment & Plan (01/13/2025 4:16 PM EDT): back in 06/23/24- was 13.1/41.6 with an iron saturation of 17%. Ferritin 157. Patient increased iron in his diet and repeated the labs. Repeat HH in August was 13.3/42.0 with iron saturation of 26% and ferritin of 120. We will check a CBC and iron studies with fasting labs. Orders: Complete Blood Count, with Differential Iron, TIBC, and Ferritin Panel History of pulmonary embolism 01/13/2025 Assessment & Plan (01/13/2025 4:16 PM EDT): Diagnosed in October 2023. Presented to the ER with left-sided chest pain. Was treated with Eliquis. Saw hematology with a negative workup. Off anticoagulation. Hypogonadism in male 01/13/2025 Assessment & Plan (01/13/2025 4:16 PM EDT): Following with urology. Lab work ordered/workup in progress. Considering starting testosterone. Morbid obesity 09/18/2023 09/18/2023 Assessment & Plan (01/13/2025 4:16 PM EDT): Patient states he gained a little bit of weight back from vacation but overall is doing well. He is try to be more consistent at the gym and with his diet. We discussed briefly tirzepatide and he will think about that, now that it is covered for sleep apnea it is an option. Kidney stone 09/18/2023 09/18/2023 Family history of colon cancer 09/06/2023 Assessment & Plan (01/13/2025 4:16 PM EDT): UTD with his colonoscopy- due 2027. Primary hypertension 09/06/2023 Assessment & Plan (01/13/2025 4:16 PM EDT): Compliant with BP meds. Other hyperlipidemia 09/06/2023 Assessment & Plan (01/13/2025 4:16 PM EDT): Last fasting lipid profile done 06/23/24 showed total cholesterol 227, triglycerides 248, HDL 36 and LDL 150. Patient is working on diet and exercise. Would like to repeat lab in 3 to 6 months. Orders placed. Orders: Lipid panel History of kidney stones 09/06/2023 Assessment & Plan (01/13/2025 4:16 PM EDT): No further issues. Asymptomatic. LIBRADO (obstructive sleep apnea) 09/06/2023 Assessment & Plan (01/13/2025 4:16 PM EDT): Compliant with CPAP. Resolved Problems Problem Noted Date Diagnosed Date Resolved Date Other pulmonary embolism wit hout acute cor pulmonale 11/20/2023 09/01/2024 Overview (11/20/2023): Unprovoked. October 2023. Pure hypercholesterolemia 11/09/2020 09/18/2023 Encounters Date Type Department Care Team Description 05/01/2025 10:00 AM EST Office Visit [address] [phone] Figueroa Mak PA-C Chest wall pain (Primary Dx); Chest pain, unspecified type; Family history of cardiac disorder from Last 3 Months Immunizations Immunization Administration Dates Next Due DTaP 01/05/2009 Td, Unspecified 01/19/1997 Tdap 06/10/2018,05/31/2018 Family History Medical History Relation Name Comments Cerebral aneurysm Father Colon cancer Maternal Grandmother Brain cancer Mother Diabetes Mother Hypertension Mother Relation Name Status Comments Father Maternal Grandmother Mother Social History Tobacco Use Types Packs/Day Years Used Date Smoking Tobacco: Never Smokeless Tobacco: Never Tobacco Cessation:Counseling Given: Not Answered Alcohol Use Standard Drinks/Week Comments Yes 0 (1 standard drink = 0.6 oz pur e alcohol) [facility] Utilities Answer Date Recorded In the past 12 months has [employer] electric, gas, oil, or water company threatened to shut off services in your home? No 07/02/2024 Social Connection and Isolation Panel Answer Date Recorded In a typical week, how many times do you talk on the phone with family, friends, or neighbors? More than three times a week 07/02/2024 Frequency of Social Gatherin gs with Friends and Family Not on file 07/02/2024 Attends Jew Services Not on file 07/02 Active Member [...] any time in the past 12 m [facility], were you homeless or living in a residential (including now)? No 07/02/2024 Physical Activity Answer [...] on file Sexual Orientation Not on file Last Filed Vital Signs Vital Sign Reading [...] Mass Index 43.46 05/01/2025 9:50 AM EST Plan of Treatment Upcoming Encounters Date Type Department Care Team (Late st Contact Info) Description 07/14/2025 12:30 PM EST Office Visit [facility] [address] [facility] [address] [place] [address] Karen Scales PA-C [address] [place] [address] Health Maintenance Due Date Last Done Comments Influenza Vaccine 12/12/2024 COVID-19 Vaccine ( season) 2025 Physical 01/13/2027 01/13/2025, 11/29/2023 DTaP/Tdap/Td Vaccines (5 - Td or Tdap) 06/10/2028 06/10/2018, 05/31/2018, 01/05/2009, Additional history exists HIV Screening Discontinued HPV Vaccines (No Doses Required) Completed Hepatitis B Vaccines Discontinued Hepatitis C Virus Screening Discontinued Pneumococcal Vaccine: Pediatric (0-5 Years) and At-Risk Patients (6 to 49 Years) Aged Out No longer eligible based on patient's age to complete [place] [phone] [employer] Care Teams Dye And Chemical Coordinator Relationship Specialty Start Date End Date Karen Scales PA-C [address] [place] [address] PCP - General Internal Medicine 09/05/23 Stanislaw Rodriguez MD [address] [place] [address] Gastroenterology 09/06/23 Shiv Cedeño MD [address] [address] Neuropsychiatry 09/06/23
--- OUTSIDE RECORDS SUMMARY | 2025-05-01 16:45 | XMS_ITS | Encounter Summary ---
Author Organization [facility] Address [address] [place] [address] Care Team Providers Care Cotton Puller Name Role Phone Karen Scales PA-C Primary Care Provi naveed Stanislaw Rodriguez MD Unavailable Unavailable Shiv Cedeño MD Unavailable [phone] Encounter Details Date Type Department Care Team (Late st Contact Info) Description 07/15/2024 Scanned Document [facility] SLEEP MED SCAN Sleep Medicine, Scan Social History Tobacco Use Types Packs/Day Years Used Date Smoking Tobacco: Never Smokeless Tobacco: Never Alcohol Use Standard Drinks/Week Comments Yes 0 (1 standard drink = 0.6 oz pur e alcohol) [facility] Utilities Answer Date Recorded In the past 12 months has [employer] electric, gas, oil, or water company threatened to shut off services in your home? No 07/02/2024 Social Connection and Isolation Panel Answer Date Recorded In a typical week, how many times do you talk on the phone with family, friends, or neighbors? More than three times a week 07/02/2024 Frequency of Social Gatherin gs with Friends and Family Not on file 07/02/2024 Attends Che[employer]ism Services Not on file 07/02 Active Member [...] Answer Date Recorded PHQ-2 Total Score 0 11/29/2023 Hunger Vital Sign Answer Date Recorded Within [...] any time in the past 12 m [facility], were you homeless or living in a care home (including now)? No 07/02/2024 Physical Activity Answer Date Recorded On average, how many days pe r week do you engage in moderate to strenuous exercise (like a brisk walk)? 2 days 11/29/2023 On average, how many minutes do you exercise per day at this level? 30 min 11/29/2023 Education Answer Date Recorded What is the [...] Description 07/14/2025 12:30 PM EST Office Visit [address] [place] [address] Karen Scales PA-C [address] [place] [address] documented as of this encounter Visit Diagnoses Not on filedocumented in this encounter Care Teams Cotton Puller Relationship Specialty Start Date End Date Karen Scales PA-C [address] [place] [address] PCP - General Internal Medicine 09/05/23 Stanislaw Rodriguez MD [address] [place] [address] Gastroenterology 09/06/23 Shiv Cedeño MD [address] [address] Neuropsychiatry 09/06/23 documented as of this encounter
--- OUTSIDE RECORDS SUMMARY | 2025-05-01 16:45 | XMS_ITS | Encounter Summary ---
Author Organization [facility] Address [address] [place] [address] Care Team Providers Care Electrical Electronics Engineers Name Role Phone Karen Scales Primary Care Provider [phone] Encounter Details Date Type Department Care Team (Late st Contact Info) Description 04/15/2025 Lab Requisition [facility] - Main Lab [address] [place] [address] River Godoy PA [address] [place] [address] [place] [phone] Testicular hypofunction Social History Tobacco Use Types [...] Procedure Name Priority Date/Time Associated Diagnosis Comments COMPLETE BLOOD COUNT Routine 04/15/2025 8:17 AM EST Testicular hypofunction documented in this encounter Results * (ABNORMAL) Complete blood count (04/15/2025 8:17 AM EST) WBC 6.4 4.8 - 10.8 [facility] LAB HEMETOLOGY METHOD 04/15/2025 12:22 PM EST [facility] LAB RBC 5.30 4.50 - 5.50 [facility] LAB HEMETOLOGY METHOD 04/15/2025 12:22 PM EST [facility] LAB Hemoglobin 14.1 13.5 - 17.5 g/dL LAB HEMETOLOGY METHOD 04/15/2025 12:22 PM [facility] LAB Hematocrit 45.1 42.0 - 54.0 % LAB HEMETOLOGY METHOD 04/15/2025 12:22 PM [facility] LAB MCV 85.6 79.0 - 98.0 FL LAB HEMETOLOGY METHOD 04/15/2025 12:22 PM [facility] LAB MCH 26.8(L) 27.0 - 32.0 pcg LAB HEMETOLOGY METHOD 04/15/2025 12:22 PM [facility] LAB MCHC 31.3(L) 32.0 - 37.0 g/dL LAB HEMETOLOGY METHOD 04/15/2025 12:22 PM [facility] LAB RDW 14.0 11.0 - 15.0 % LAB HEMETOLOGY METHOD 04/15/2025 12:22 PM [facility] LAB Platelets 218 130 - 400 K/mcL LAB HEMETOLOGY METHOD 04/15/2025 12:22 PM [facility] LAB MPV 11.2(H) 7.0 - 11.0 FL LAB HEMETOLOGY METHOD 04/15/2025 12:22 PM [facility] LAB NRBC 0.0 <1.0 % LAB HEMETOLOGY METHOD 04/15/2025 12:22 PM [facility] LAB NRBC Absolute 0.00 <0.10 K/mcL LAB HEMETOLOGY METHOD 04/15/2025 12:22 PM [facility] LAB Blood Venous blood specimen / Unknown 04/15/2025 8:17 AM EST 04/15/2025 11:33 AM EST [facility] BLOOD ORDERABLES Final Res ult [facility] [address] [place] [address], documented in this encounter Visit Diagnoses Diagnosis Testicular hypofunction Other testicular hypofunction documented in this encounter Care Teams Electrical Electronics Engineers Relationship Specialty Start Date End Date Karen Scales PA [address] [facility] [address] [place] [address] PCP - General 04/02/23 documented as of this encounter
--- OUTSIDE RECORDS SUMMARY | 2025-05-01 16:45 | XMS_ITS | Encounter Summary ---
Author Organization [facility] Address [address] [place] [address] Care Team Providers Care Lab Specialist Name Role Phone Karen Scales PA-C Primary Care Provi naveed Stanislaw Rodriguez MD Unavailable Unavailable Shiv Cedeño MD Unavailable [phone] Encounter Details Date Type Department Care Team (Late st Contact Info) Description 07/10/2024 Scanned Document [facility] GENERAL SURG SCAN General Internal Medicine, Scan Social History Tobacco Use Types Packs/Day Years Used Date Smoking Tobacco: Never Smokeless Tobacco: Never Alcohol Use Standard Drinks/Week Comments Yes 0 (1 standard drink = 0.6 oz pur e alcohol) [facility] Utilities Answer Date Recorded In the past 12 months has [employer] electric, gas, oil, or water company threatened to shut off services in your home? No 07/02/2024 Social Connection and Isolation Panel Answer Date Recorded In a typical week, how many times do you talk on the phone with family, friends, or neighbors? More than three times a week 07/02/2024 Frequency of Social Gatherin gs with Friends and Family Not on file 07/02/2024 Attends Christian Services Not on file 07/02 Active Member [...] any time in the past 12 m [facility], were you homeless or living in a nursing home (including now)? No 07/02/2024 Physical Activity [...] Description 07/14/2025 12:30 PM EST Office Visit [address] [phone] Karen Scales PA-C [address] [place] [address] documented as of this encounter Visit Diagnoses Not on filedocumented in this encounter Care Teams Lab Specialist Relationship Specialty Start Date End Date Karen Scales PA-C [address] [place] [address] PCP - General Internal Medicine 09/05/23 Stanislaw Rodriguez MD [address] [place] [address] Gastroenterology 09/06/23 Shiv Cedeño MD [address] [address] Neuropsychiatry 09/06/23 documented as of this encounter
--- OUTSIDE RECORDS SUMMARY | 2025-05-01 16:45 | XMS_ITS | Encounter Summary ---
Author Organization [facility] Address [address] [place] [address] Care Team Providers Care Distance Learning Coordinator Name Role Phone Karen Scales PA-C Primary Care Provi naveed Stanislaw Rodriguez MD Unavailable Unavailable Shiv Cedeño MD Unavailable [phone] Encounter Details Date Type Department Care Team (Late st Contact Info) Description 12/17/2023 Scanned Document [facility] HEM ONC SCAN Provider, Generic External Data Social History Tobacco Use Types Packs/Day Years Used Date Smoking Tobacco: Never Smokeless Tobacco: Never Alcohol Use Standard Drinks/Week Comments Yes 0 (1 standard drink = 0.6 oz pur e alcohol) PHQ-2 Answer Date Recorded PHQ-2 Total Score 0 11/29/2023 Physical Activity Answer Date Recorded On average, how many days pe r week do you engage in moderate to strenuous exercise (like a brisk walk)? 2 days 11/29/2023 On average, how many minutes do you exercise per day at this level? 30 min 11/29/2023 Sex and Gender Information Value Date Recorded Sex Assigned at Male 09/18/2023 8:10 AM EDT Legal Sex Male 10:02 AM EST Gender Identity Not on file Sexual Orientation Not on file documented as of this encounter Plan of Treatment Upcoming Encounters Date Type Department Care Team (Late st Contact Info) Description 07/14/2025 12:30 PM EST Office Visit [address] [address] Karen Scales PA-C [address] [place] [address] documented as of this encounter Visit Diagnoses Not on filedocumented in this encounter Care Teams Distance Learning Coordinator Relationship Specialty Start Date End Date Karen Scales PA-C 100 [place] [address] PCP - General Internal Medicine 09/05/23 Stanislaw Rodriguez MD [address] [place] [address] Gastroenterology 09/06/23 Shiv Cedeño MD [address] [address] Neuropsychiatry 09/06/23 documented as of this encounter
--- OUTSIDE RECORDS SUMMARY | 2025-05-01 16:45 | XMS_ITS | Encounter Summary ---
Author Organization [facility] Address [address] [place] [address] Care Team Providers Care Level Vial Inspector And Tester Name Role Phone Karen Scales PA-C Primary Care Provi naveed Stanislaw Rodriguez MD Unavailable Unavailable Shiv Cedeño MD Unavailable [phone] Encounter Details Date Type Department Care Team (Late st Contact Info) Description 07/10/2024 Scanned Document [facility] GENERAL SURG SCAN General Internal Medicine, Scan Social History Tobacco Use Types Packs/Day Years Used Date Smoking Tobacco: Never Smokeless Tobacco: Never Alcohol Use Standard Drinks/Week Comments Yes 0 (1 standard drink = 0.6 oz pur e alcohol) [facility] Utilities Answer Date Recorded In the past 12 months has [employer] electric, gas, oil, or water company threatened to shut off services in your home? No 07/02/2024 Social Connection and Isolation Panel Answer Date Recorded In a typical week, how many times do you talk on the phone with family, friends, or neighbors? More than three times a week 07/02/2024 Frequency of Social Gatherin gs with Friends and Family Not on file 07/02/2024 Attends Anabaptist Services Not on file 07/02 Active Member [...] any time in the past 12 m [facility], were you homeless or living in a fci (including now)? No 07/02/2024 Physical Activity Answer [...] Description 07/14/2025 12:30 PM EST Office Visit [address] [phone] Karen Scales PA-C [address] [place] [address] documented as of this encounter Visit Diagnoses Not on filedocumented in this encounter Care Teams Level Vial Inspector And Tester Relationship Specialty Start Date End Date Karen Scales PA-C [address] [place] [address] PCP - General Internal Medicine 09/05/23 Stanislaw Rodriguez MD [address] [place] [address] Gastroenterology 09/06/23 Shiv Cedeño MD [address] [address] Neuropsychiatry 09/06/23 documented as of this encounter
--- OUTSIDE RECORDS SUMMARY | 2025-05-01 16:45 | XMS_ITS | Encounter Summary ---
Author Organization [facility] Address [address] [place] [address] Care Team Providers Care Solar Design Engineer Name Role Phone Karen Scales PA-C Primary Care Provi naveed Stanislaw Rodriguez MD Unavailable Unavailable Shiv Cedeño MD Unavailable [phone] Encounter Details Date Type Department Care Team (Late st Contact Info) Description 08/13/2024 Scanned Document [facility] UROLOGY SCAN Urology, Scan Social History Tobacco Use Types Packs/Day Years Used Date Smoking Tobacco: Never Smokeless Tobacco: Never Alcohol Use Standard Drinks/Week Comments Yes 0 (1 standard drink = 0.6 oz pur e alcohol) [facility] Utilities Answer Date Recorded In the past 12 months has [employer] electric, gas, oil, or water company threatened to shut off services in your home? No 07/02/2024 Social Connection and Isolation Panel Answer Date Recorded In a typical week, how many times do you talk on the phone with family, friends, or neighbors? More than three times a week 07/02/2024 Frequency of Social Gatherin gs with Friends and Family Not on file 07/02/2024 Attends Adventism Services Not on file 07/02 Active Member [...] time in the past 12 m [facility], were you homeless or living in a long-term (including now)? No 07/02/2024 Physical Activity Answer [...] Description 07/14/2025 12:30 PM EST Office Visit [address] [place] [address] Karen Scales PA-C [address] [place] [address] documented as of this encounter Visit Diagnoses Not on filedocumented in this encounter Care Teams Solar Design Engineer Relationship Specialty Start Date End Date Karen Scales PA-C [address] [place] [address] PCP - General Internal Medicine 09/05/23 Stanislaw Rodriguez MD [address] [place] [address] Gastroenterology 09/06/23 Shiv Cedeño MD [address] [address] Neuropsychiatry 09/06/23 documented as of this encounter
--- OUTSIDE RECORDS SUMMARY | 2025-05-01 16:45 | XMS_ITS | Encounter Summary ---
Author Organization [facility] Address [address] [place] [address] Care Team Providers Care Corrosion Engineer Name Role Phone Karen Scales PA-C Primary Care Provi naveed Stanislaw Rodriguez MD Unavailable Unavailable Shiv Cedeño MD Unavailable [phone] Encounter Details Date Type Department Care Team (Late st Contact Info) Description 08/28/2024 Scanned Document [facility] [address] [place] [address] Urology, Scan Social History Tobacco Use Types Packs/Day Years Used Date Smoking Tobacco: Never Smokeless Tobacco: Never Alcohol Use Standard Drinks/Week Comments Yes 0 (1 standard drink = 0.6 oz pur e alcohol) [facility] Utilities Answer Date Recorded In the past 12 months has e electric, gas, oil, or water company threatened to shut off services in your home? No 07/02/2024 Social Connection and Isolation Panel Answer Date Recorded In a typical week, how many times do you talk on the phone with family, friends, or neighbors? More than three times a week 07/02/2024 Frequency of Social Gatherin gs with Friends and Family Not on file 07/02/2024 Attends Alevism Services Not on file 07/02 Active Member [...] were you homeless or living in a fpc (including now)? No 07/02/2024 Physical Activity Answer [...] Description 07/14/2025 12:30 PM EST Office Visit [address] [phone] Karen Scales PA-C [address] [place] [address] documented as of this encounter Visit Diagnoses Not on filedocumented in this encounter Care Teams Corrosion Engineer Relationship Specialty Start Date End Date Karen Scales PA-C [address] [place] [address] PCP - General Internal Medicine 09/05/23 Stanislaw Rodriguez MD [address] [place] [address] Gastroenterology 09/06/23 Shiv Cedeño MD [address] [address] Neuropsychiatry 09/06/23 documented as of this encounter
--- OUTSIDE RECORDS SUMMARY | 2025-05-01 16:45 | XMS_ITS | Encounter Summary ---
Author Organization [facility] Address [address] [place] [address] Care Team Providers Care Finish Inspector Name Role Phone Karen Scales PA-C Primary Care Provi anveed Stanislaw Rodriguez MD Unavailable Unavailable Shiv Cedeño MD Unavailable [phone] Encounter Details Date Type Department Care Team (Late st Contact Info) Description 01/23/2025 Scanned Document [facility] UROLOGY SCAN Urology, Scan Social History Tobacco Use Types Packs/Day Years Used Date Smoking Tobacco: Never Smokeless Tobacco: Never Alcohol Use Standard Drinks/Week Comments Yes 0 (1 standard drink = 0.6 oz pur e alcohol) [facility] Utilities Answer Date Recorded In the past 12 months has [employer] electric, gas, oil, or water company threatened to shut off services in your home? No 07/02/2024 Social Connection and Isolation Panel Answer Date Recorded In a typical week, how many times do you talk on the phone with family, friends, or neighbors? More than three times a week 07/02/2024 Frequency of Social Gatherin gs with Friends and Family Not on file 07/02/2024 Attends Jehovah'S Witness Services Not on file 07/02 Active Member [...] any time in the past 12 m [facility], were you homeless or living in a fdc (including now)? No 07/02/2024 Physical Activity Answer [...] Description 07/14/2025 12:30 PM EST Office Visit [address] [place] [address] Karen Scales PA-C [address] [place] [address] documented as of this encounter Visit Diagnoses Not on filedocumented in this encounter Care Teams Finish Inspector Relationship Specialty Start Date End Date Karen Scales PA-C [address] [place] [address] PCP - General Internal Medicine 09/05/23 Stanislaw Rodriguez MD [address] [place] [address] Gastroenterology 09/06/23 Shiv Cedeño MD [address] [address] Neuropsychiatry 09/06/23 documented as of this encounter
--- OUTSIDE RECORDS SUMMARY | 2025-05-01 16:45 | XMS_ITS | Clinical Summary ---
Author Organization [facility] Address [address] [place] [address] Phone Care Team Providers Care Supervisor Patching Name Role Phone Karen Scales Primary Care Provider [phone] Encounters Date Type Department Care Team Description 04/15/2025 Lab Requisition [facility] Lab [address] [place] [phone] River Godoy PA Testicular hypofunction 03/09/2025 Lab Requisition [facility] Lab [address] [place] [phone] River Godoy PA Testicular hypofunction from Last 3 Months Surgical History Surgery Date Site/Laterality Comments OTHER SURGICAL HISTORY PROCEDURE: HISTORY OTHER; COMMENT: ACL repair KNEE ARTHROSCOPY Left PROCEDURE: ME ARTHROSCOPY AID TX SPINE&/FX KNEE W/O FIXJ VASECTOMY PROCEDURE: ME VASECTOMY UNI/BI SPX W/POSTOP SEMEN EXAMS Medical History Medical History Date Comments Covid-19 DX:COVID-19 History of kidney stones DX:Hist ory of kidney stones Morbid obesity (CMS/HCC V24, CMS/HCC V28) DX:Morbid obesity ([facility]) Family History Medical History Relation Name Comments Brain Aneurysm Father Colon cancer Maternal Grandmother Diabetes Mother mellitus, type 2 Hypertension Mother Other: Brain Neoplasm, Malignant Mother Relation Name Status Comments Father Maternal [...] Sign Reading Time Taken Comments Blood Pressure 130/80 02/01/2022 3:26 PM EDT Sit ting L Arm Pulse 58 12/26/2021 10:19 AM EDT Temperature - - Respiratory Rate - - Oxygen Saturation - - Inhaled Oxygen Concentration - - Weight 144 kg (318 lb) 02/01/2022 3:26 PM EDT Height 180.3 cm (5' 11 ) 02/01/2022 3:26 PM EDT Body Mass Index 44.35 02/01/2022 3:26 PM EDT Plan of Treatment Health Maintenance Due Date Last Done Comments Hepatitis B Vaccines (1 of 3 - 19+ 3-dose series) 2002 HPV Vaccines (1 - 3-dose SCD M series) 2010 Cholesterol Screening (Lipid Panel) 04/15/2022 HIV Screening 04/15/2022 Hepatitis C Screening 04/15/2022 Social Influencers of Health Screening 04/15/2022 Hypertension/CHF/CAD Annual BMP Blood Test 04/28/2022 Depression Screening 05/14/2024 COVID-19 Vaccine (1 - 2024-2 6 season) 2025 Influenza Vaccine (#1) 2025 DTaP,Tdap,and Td Vaccines (4 - Td or Tdap) 05/31/2028 05/31/2018, 01/05/2009, 01/19/1997 RSV Immunization Adult Patients (1 - 1-dose 75+ series) 2058 HIB Vaccines Aged Out No longer eligi ble based on patient's age to complete this topic Hepatitis A Vaccines Aged Out No long er eligible based on patient's age to complete this topic IPV Vaccines Aged Out No longer eligi ble based on patient's age to complete this topic MMR Vaccines Aged Out No longer eligi ble based on patient's age to complete this topic Meningococcal ACWY Vaccine Aged Out N o longer eligible based on patient's age to complete this topic Meningococcal B Vaccine Aged Out No l onger eligible based on patient's age to complete this topic Pneumococcal Vaccine: Pediatrics (0 to 5 Years) and At-Risk Patients (6 to 49 Years) Aged Out No longer eligible b ased on patient's age to complete this topic RSV Immunization Patients Under 20 months Aged Out No longer eligible b ased on patient's age to complete this topic Varicella Vaccines Aged Out No longer eligible based on patient's age to complete this topic Procedures Procedure Name Priority Date/Time Associated Diagnosis Comments COMPLETE BLOOD COUNT Routine 04/15/2025 8:17 AM EST Testicular hypofunction COMPLETE BLOOD COUNT Routine 03/09/2025 9:40 AM EDT Testicular hypofunction from Last 3 Months Results * (ABNORMAL) Complete blood count (04/15/2025 8:17 AM EST) Only the most recent of2 resultswithin the time period is included. WBC 6.4 4.8 - 10.8 K/mcL LAB HEMETOLOGY METHOD 04/15/2025 12:22 PM [facility] LAB RBC 5.30 4.50 - 5.50 M/mcL LAB HEMETOLOGY METHOD 04/15/2025 12:22 PM [facility] LAB Hemoglobin 14.1 13.5 - 17.5 g/dL LAB HEMETOLOGY METHOD 04/15/2025 12:22 PM [facility] LAB Hematocrit 45.1 42.0 - 54.0 % LAB HEMETOLOGY METHOD 04/15/2025 12:22 PM [facility] LAB MCV 85.6 79.0 - 98.0 FL LAB HEMETOLOGY METHOD 04/15/2025 12:22 PM [facility] LAB MCH 26.8(L) 27.0 - 32.0 pcg LAB HEMETOLOGY METHOD 04/15/2025 12:22 PM [facility] LAB MCHC 31.3(L) 32.0 - 37.0 g/dL LAB HEMETOLOGY METHOD 04/15/2025 12:22 PM [facility] LAB RDW 14.0 11.0 - 15.0 % LAB HEMETOLOGY METHOD 04/15/2025 12:22 PM [facility] LAB Platelets 218 130 - 400 K/mcL LAB HEMETOLOGY METHOD 04/15/2025 12:22 PM EST [facility] LAB MPV 11.2(H) 7.0 - 11.0 FL LAB HEMETOLOGY METHOD 04/15/2025 12:22 PM EST [facility] NRBC 0.0 <1.0 % LAB HEMETOLOGY METHOD 04/15/2025 12:22 PM EST [facility] LAB NRBC Absolute 0.00 <0.10 K/mcL LAB HEMETOLOGY METHOD 04/15/2025 12:22 PM EST [facility] Blood Venous blood specimen / Unknown 04/15/2025 8:17 AM EST 04/15/2025 11:33 AM EST [facility] BLOOD ORDERABLES Final Res ult [facility] [address] [place] [address], from Last 3 [id number] [employer] Care Teams Supervisor Patching Relationship Specialty Start Date End Date Karen Scales PA [address] [facility] [address] [place] [address] PCP - General 04/02/23
--- OUTSIDE RECORDS SUMMARY | 2025-05-01 16:45 | XMS_ITS | Encounter Summary ---
Author Organization [facility] Address [address] [place] [address] Care Team Providers Care Pet Stylist Name Role Phone Karen cSales PA-C Primary Care Provi naveed Stanislaw Rodriguez MD Unavailable Unavailable Shiv Cedeño MD Unavailable [phone] Encounter Details Date Type Department Care Team (Late st Contact Info) Description 08/13/2024 Scanned Document [facility] UROLOGY SCAN Urology, Scan Social History Tobacco Use Types Packs/Day Years Used Date Smoking Tobacco: Never Smokeless Tobacco: Never Alcohol Use Standard Drinks/Week Comments Yes 0 (1 standard drink = 0.6 oz pur e alcohol) [facility] Utilities Answer Date Recorded In the past 12 months has [employer] electric, gas, oil, or water company threatened to shut off services in your home? No 07/02/2024 Social Connection and Isolation Panel Answer Date Recorded In a typical week, how many times do you talk on the phone with family, friends, or neighbors? More than three times a week 07/02/2024 Frequency of Social Gatherin gs with Friends and Family Not on file 07/02/2024 Attends [employer] Not on file 07/02 Active Member [...] time in the past 12 m [place], were you homeless or living in a jail (including now)? No 07/02/2024 Physical Activity Answer [...] Description 07/14/2025 12:30 PM EST Office Visit [address] [place] [address] Karen Scales PA-C [address] [place] [id number] documented as of this encounter Visit Diagnoses Not on filedocumented in this encounter Care Teams Pet Stylist Relationship Specialty Start Date End Date Karen Scales PA-C [address] [place] [address] PCP - General Internal Medicine 09/05/23 Stanislaw Rodriguez MD [address] [place] [address] Gastroenterology 09/06/23 Shiv Cedeño MD [address] [address] Neuropsychiatry 09/06/23 documented as of this encounter
--- OUTSIDE RECORDS SUMMARY | 2025-05-01 16:45 | XMS_ITS | Encounter Summary ---
Author Organization [facility] Address [address] [place] [id number] Care Team Providers Care Freelance Director Name Role Phone Karen Scales Primary Care Provider [phone] Encounter Details Date Type Department Care Team (Late st Contact Info) Description 03/09/2025 Lab Requisition [facility] - Main Lab [address] [place] [address] River Godoy PA [address] [place] [address] [place] [phone] Testicular hypofunction Social History Tobacco Use Types [...] Associated Diagnosis Comments COMPLETE BLOOD COUNT Routine 03/09/2025 9:40 AM EDT Testicular hypofunction documented in this encounter Results * (ABNORMAL) Complete blood count (03/09/2025 9:40 AM EDT) WBC 5.2 4.8 - 10.8 K/[facility] LAB HEMETOLOGY METHOD 03/09/2025 7:45 PM EDT [facility] LAB RBC 5.20 4.50 - 5.50 M/[facility] LAB HEMETOLOGY METHOD 03/09/2025 7:45 PM EDT [facility] LAB Hemoglobin 13.5 13.5 - 17.5 g/dL LAB HEMETOLOGY METHOD 03/09/2025 7:45 PM EDT [facility] LAB Hematocrit 45.5 42.0 - 54.0 % LAB HEMETOLOGY METHOD [facility] MCV 88.0 79.0 - 98.0 FL LAB HEMETOLOGY METHOD 03/09/2025 7:45 PM EDT [facility] LAB MCH 26.1(L) 27.0 - 32.0 pcg LAB HEMETOLOGY METHOD 03/09/2025 7:45 PM EDT [facility] LAB MCHC 29.7(L) 32.0 - 37.0 g/dL LAB HEMETOLOGY METHOD 03/09/2025 7:45 PM [facility] LAB RDW 14.7 11.0 - 15.0 % LAB HEMETOLOGY METHOD [facility] Platelets 207 130 - 400 K/[facility]L LAB HEMETOLOGY METHOD 03/09[facility]2025 7[facility] MPV 11.5(H) 7.0 - 11.0 FL LAB HEMETOLOGY METHOD 03/09/2025 7[facility] NRBC 0.0 <1.0 % LAB HEMETOLOGY METHOD 03/09/2025 7:45 PM [facility] LAB NRBC Absolute 0.00 <0.10 K/mcL LAB HEMETOLOGY METHOD 03/09/2025 7:45 PM [facility] LAB Blood Venous blood specimen / Unknown 03/09/2025 9:40 AM EDT 03/09/2025 7:29 PM EDT [facility] BLOOD ORDERABLES Final Res ult [facility] [address] [place] [address], documented in this encounter Visit Diagnoses Diagnosis Testicular hypofunction Other testicular hypofunction documented in this encounter Care Teams Freelance Director Relationship Specialty Start Date End Date Karen Scales PA [address] [facility] [address] [place] [phone] PCP - General 04/02/23 documented as of this encounter
[2025-05-01 17:11] VITALS: BP 136/72; PULSE 52; RESP 16
[2025-05-01 17:25] LABS: Troponin-I High Sensitivity 3.9 ng/L (<3.5-35.0)
[2025-05-01] MEDS: iohexoL 350 MG/ML 100 ML INFUS..BTL IV (17:46)
[2025-05-01 18:57] VITALS: BP 135/83; PULSE 56; RESP 16; TEMP -17.7; TEMP 0; O2SAT 98
== END 2025-05-01 18:58 | disposition home or self-care (01) ==
PROVIDERS: Physician Assistant; Emergency Provider Emergency Medicine Emergency Medical Services
DX: I26.99 Other pulmonary embolism without acute cor pulmonale (principal); R07.9 Chest pain, unspecified; M54.9 Dorsalgia, unspecified
CPT/HCPCS: 36415; 71046; 71275; 80048; 80076; 83735; 84484; 85025; 85610; 93005; 99285; Q9967

== ENCOUNTER → 2025-05-01 11:13 | Outpatient (BNV) | payer OTHER, SELFPAY | PROVIDERS: Emergency Provider Emergency Medicine Emergency Medical Services; Visit Provider Internal Medicine Cardiovascular Disease | DX: R94.31 Abnormal electrocardiogram [ECG] [EKG] (principal); R07.9 Chest pain, unspecified | CPT/HCPCS: 93010 ==

== ENCOUNTER → 2025-05-01 11:36 | Outpatient (BNV) | payer OTHER, SELFPAY | PROVIDERS: Visit Provider Radiology Diagnostic Radiology | DX: I26.99 Other pulmonary embolism without acute cor pulmonale (principal); R07.9 Chest pain, unspecified | CPT/HCPCS: 71046; 71275 ==